=== PATIENT | female | born 1990 | race Caucasian/White ===

== ENCOUNTER 2019-04-15 16:34 | Emergency (ER) | payer OTHER ==
[2019-04-15 16:47] VITALS: BMI 28.7
--- NOTE | 2019-04-15 17:13 | PDOC ---
Attending Attestation - Resident Resident Name: Eliseo Luna - ED Attending Attestation I have performed the following: I have examined & evaluated the patient, The case was reviewed & discussed with the resident, I agree w/resident's findings & plan, Exceptions are as noted - HPI HPI: 04/15/19 17:12 28-year-old female who states she is about 14 weeks and has vaginal bleeding - Physicial Exam PE: 04/15/19 18:[address] Eliseo aGrcía's physical exam. - Medical Decision Making 04/15/19 18:37 This patient is followed by [employer] and Dr. 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 Chow who wanted her given rhogam this evening
[2019-04-15 17:53] LABS: PH,URINE 5.5 (5.0-8.0); URINE APPEARANCE CLEAR; URINE BILIRUBIN NEGATIVE (NEGATIVE); URINE COLOR YELLOW; URINE GLUCOSE (UA) NEGATIVE (NEGATIVE); URINE KETONE NEGATIVE (NEGATIVE); URINE LEUK ESTERASE NEGATIVE (NEGATIVE); URINE NITRITE NEGATIVE (NEGATIVE); URINE PROTEIN NEGATIVE (NEGATIVE); URINE UROBILINOGEN 0.2 mg/dL (0.2-1.0)
[2019-04-15 17:59] LABS: BASO % 0.4 % (0-2.0); EOS % 1.4 % (0-4.5); HEMATOCRIT 35.3 % (32.4-45.2); HEMOGLOBIN 12.1 GM/dL (10.7-15.3); LYMPH % 19.1 % (8-40); MCH 27.3 pg (25.7-33.7); MCHC 34.2 g/dl (32.0-36.0); MEAN CELL VOLUME 79.6 fl (80-96); NEUT % 72.1 % (42.8-82.8); PLATELET COUNT 229 K/MM3 (134-434); RBC 4.44 M/mm3 (3.60-5.2); RDW 14.4 % (11.6-15.6)
[2019-04-15 18:14] LABS: INR 0.89 (0.83-1.09); PROTHROMBIN TIME (PATIENT) 10.5 SEC (9.7-13.0)
[2019-04-15 18:17] LABS: ACTIVATED PTT 30.3 SECONDS (25.2-36.5)
[2019-04-15 18:26] LABS: ALBUMIN 3.2 g/dl (3.4-5.0); ALK PHOS 64 U/L (45-117); ANION GAP 4 MMOL/L (8-16); BILIRUBIN,TOTAL < 0.1 mg/dL (0.2-1); BLOOD UREA NITROGEN 8.4 mg/dL (7-18); CALCIUM 8.8 mg/dL (8.5-10.1); CHLORIDE 107 mmol/L (98-107); CO2 25 mmol/L (21-32); CREATININE 0.4 mg/dL (0.55-1.3); GLUCOSE,RANDOM 93 mg/dL (74-106); POTASSIUM 4.1 mmol/L (3.5-5.1); SGOT/AST 12 U/L (15-37); SGPT/ALT 18 U/L (13-61); SODIUM 136 mmol/L (136-145); TOT PROT 6.7 g/dl (6.4-8.2)
--- NOTE | 2019-04-15 18:27 | PDOC ---
History of Present Illness - General Chief Complaint: Vaginal Bleeding Stated Complaint: 14WEEKS SPOTTING Time Seen by Provider: 04/15/19 17:05 History Source: Patient Exam Limitations: No Limitations - History of Present Illness Initial Comments: 04/15/19 18:27 28 yo female, with 1 noted miscarriage at 12 weeks for unknown reason presents to the ED for 3 days of vaginal spotting with associated suprapubic abdominal pain. Pt CHAIR, Dr. Man made pt aware that she is Rh- and if she notes bleeding to head to the ER for Rho daniel; pt recently given rho daniel after a noted bleeding with a hematoma noted near her cervix. Last appointment [address] Man, no US done but normal milestones met. Pt admits to bright red blood spotting, no heavy bleeding, denies weakness, lighteadedness, F/C/N/V, severe abdominal pain, CP, SOB, recent trauma, hx of bleeding, liver disease. Past History - Past Medical History Allergies/Adverse Reactions: Allergies Allergy/AdvReac Type Severity Reaction Status Date / Time No Known Allergies Allergy Verified 04/15/19 16:43 CVA: No COPD: No - Psycho Social/Smoking Cessation Hx Smoking History: Never smoked Hx Alcohol Use: No Drug/Substance Use Hx: No Review of Systems - Review of Systems Constitutional: No: Chills, Fever Respiratory: No: Shortness of Breath Cardiac (ROS): No: Chest Pain, Edema ABD/GI: Yes: Abdominal cramping, Other (suprapubic pain). No: Constipated, Diarrhea, Nausea, Vomiting : No: Burning, Dysuria, Frequency, Flank Pain Musculoskeletal: No: Back Pain Neurological: No: Headache, Numbness, Paresthesia, Weakness, Unsteady Gait, Ataxia, Dizziness *Physical Exam - Vital Signs Last Vital Signs Temp Pulse Resp BP Pulse Ox 98 F 95 H 20 136/81 99 04/15/19 16:43 04/15/19 16:43 04/15/19 16:43 04/15/19 16:43 04/15/19 16:43 - Physical Exam General Appearance: Yes: Nourished, Appropriately Dressed. No: Apparent Distress HEENT: negative: EOMI Neck: positive: Supple. negative: Carotid bruit Respiratory/Chest: positive: Lungs Clear, Normal Breath Sounds. negative: Respiratory Distress, Crackles, Rales, Rhonchi, Stridor, Wheezing Cardiovascular: positive: Regular Rhythm, Regular Rate, S1, S2. negative: Edema , JVD, Murmur Vascular Pulses: Dorsalis-Pedis (R): 4+, Doralis-Pedis (L): 4+ Female Pelvic Exam: positive: other (deferred as per CHAIR) Gastrointestinal/Abdominal: positive: Flat, Soft. negative: Pulsatile Mass, Distended, Guarding, Rebound, Tenderness Musculoskeletal: negative: CVA Tenderness Extremity: positive: Normal Capillary Refill, Normal Inspection, Normal Range of Motion Integumentary: positive: Normal Color, Dry, Warm Neurologic: positive: Fully Oriented, Alert, Normal Mood/Affect ED Treatment Course - LABORATORY CBC & Chemistry Diagram: 04/15/19 17:50 04/15/19 17:50 - ADDITIONAL ORDERS Additional order review: Laboratory Results 04/15/19 17:40 Urine Color Yellow Urine Appearance Clear Urine pH 5.5 Ur Specific [place] 1.007 L Urine Protein Negative Urine Glucose (UA) Negative Urine Ketones Negative Urine Blood Negative Urine Nitrite Negative Urine Bilirubin Negative Urine Urobilinogen 0.2 Ur Leukocyte Esterase Negative Medical Decision Making - Medical Decision Making 04/15/19 19:24 28 yo female, with 1 noted miscarriage at 12 weeks for unknown reason presents to the ED for 3 days of vaginal spotting with associated suprapubic abdominal pain. Pt CHAIR, Dr. Man made pt aware that she is Rh- and if she notes bleeding to head to the ER for Rho daniel; pt recently given rho daniel after a noted bleeding with a hematoma noted near her cervix. Last appointment [address] Man, no US done but normal milestones met. Pt admits to bright red blood spotting, no heavy bleeding, denies weakness, lightheadedness, F/C/N/V, severe abdominal pain, CP, SOB, recent trauma, hx of bleeding, liver disease. 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 Chow, agrees no current intra uterine exam should be done at this time, recommends Rhogam and f/u with Dr. Man within the next 3 days. Also recommends no work, no sex until OB f/u Labs neg for anemia, no WBC elevation, normal electrolytes Rh +, Dr. Chow states pt likely positive since she recently received rhogam however, still recommends rhogam on todays visit 04/15/19 21:26 Pt received rhogam, she is safe for DC home. Understands and agrees with plan Discharge - Discharge Information Problems reviewed: Yes Clinical Impression/Diagnosis: Vaginal bleeding before 22 weeks gestation Condition: Stable Disposition: HOME - Admission No - Follow up/Referral Referrals: Gosia Man MD [Staff Physician] - - Patient Discharge Instructions Patient Printed Discharge Instructions: DI for Vaginal Bleeding During Additional Instructions: Please call your CHAIR doctor as soon as possible for the earliest appointment , she is awaiting your call. Do not go to work, refrain from significant activity including sex. Return to the ER for new or concerning symptoms including but not limited to: vaginal bleeding, weakness, fevers. Thank you - Post Discharge Activity
[2019-04-15] MEDS ORDERED: RHO(D) IMMUNE GLOBULIN 1,500 UNIT DISP.SYRIN IM ONE (19:38)
[2019-04-15] MEDS ORDERED: ACETAMINOPHEN 1000 MG/100 ML VIAL (NON FORMULARY) IVPB ONE (20:21)
[2019-04-15] MEDS ORDERED: ACETAMINOPHEN INJECTION 100 ML IVPB ONE (20:47)
[2019-04-15 21:34] VITALS: BP 128/78; PULSE 86; TEMP 98.1
== END 2019-04-15 21:34 | disposition home or self-care (01) ==
LOC: JER 16:34
PROC: 3E033NZ Introduction of Analgesics, Hypnotics, Sedatives into Peripheral Vein, Percutaneous Approach (ICD-10-PCS; principal; 2019-04-15)
PROC: 3E0234Z Introduction of Serum, Toxoid and Vaccine into Muscle, Percutaneous Approach (ICD-10-PCS; 2019-04-15)
DX: O26.892 Other specified pregnancy related conditions, second trimester (principal); O20.8 Other hemorrhage in early pregnancy; O36.0920 Maternal care for other rhesus isoimmunization, second trimester, not applicable or unspecified; Z3A.14 14 weeks gestation of pregnancy
CPT/HCPCS: 36415; 76801-TC; 80053; 81003; 84702; 85025; 85610; 85730; 86850; 86870; 86900; 86901; 86902; 86999; 99284-25; J0131; J1561

== ENCOUNTER 2023-07-20 09:42 | Inpatient (IN) | payer BC ==
[2023-07-20 10:32] VITALS: BMI 35.8
[2023-07-20] MEDS ORDERED: OXYTOCIN 20 UNITS in 0.9% NS 20 UNIT/1,000 ML INFUS.BAG IV ONE (11:01)
[2023-07-20 11:12] LABS: BASO % 0.4 % (0-2.0); EOS % 0.3 % (0-4.5); HEMATOCRIT 34.7 % (32.4-45.2); HEMOGLOBIN 12.2 GM/dL (10.7-15.3); LYMPH % 11.2 % (8-40); MCH 26.7 pg (25.7-33.7); MCHC 35.2 g/dl (32.0-36.0); MEAN CELL VOLUME 75.9 fl (80-96); MONO % 4.3 % (3.8-10.2); NEUT % 83.8 % (42.8-82.8); PLATELET COUNT 168 10^3/uL (134-434); RBC 4.57 M/mm3 (3.60-5.2); RDW 14.9 % (11.6-15.6); WHITE BLOOD COUNT 15.7 K/mm3 (4.0-10.0)
[2023-07-20] MEDS ORDERED: LIDOCAINE HCL 1% PRESERVATIVE FREE - 30ML VIAL ONE (11:39)
[2023-07-20 11:42] LABS: POTASSIUM 3.6 mmol/L (3.5-5.1)
[2023-07-20 11:43] LABS: CALCIUM 8.7 mg/dL (8.5-10.1)
[2023-07-20 11:44] LABS: BLOOD UREA NITROGEN 8.2 mg/dL (7-18)
[2023-07-20 11:47] LABS: CREATININE 0.5 mg/dL (0.55-1.3)
[2023-07-20] MEDS ORDERED: BENZOCAINE 28 GM HEMORRHOIDAL OINTMENT TP PRN (12:01)
[2023-07-20] MEDS ORDERED: WITCH HAZEL 50% (TUCKS) 40 PAD/JAR PAD TP PRN (12:01)
[2023-07-20] MEDS ORDERED: METHYLERGONOVINE MALEATE 0.2 MG/1 ML AMP IM PRN (12:01)
[2023-07-20] MEDS ORDERED: BENZOCAINE 20% 57 GM BOTTLE TP PRN (12:01)
[2023-07-20] MEDS ORDERED: oxyCODONE HCL 5 MG TABLET PO PRN (12:01)
[2023-07-20 12:15] LABS: INR 0.98 (0.83-1.09); PROTHROMBIN TIME (PATIENT) 11.4 SEC (9.7-13.0)
[2023-07-20 12:18] LABS: ACTIVATED PTT 23.3 SECONDS (25.2-36.5)
[2023-07-20 13:29] LABS: CORD BASE EXCESS -5.1 mmol/L (0-2); CORD HCO3 22.6 mmHg (20-29); CORD PCO2 51.8 mmHg (30-78); CORD pH 7.257 (7.14-7.44)
[2023-07-20 13:32] LABS: CORD BASE EXCESS -6.7 mmol/L (0-2); CORD HCO3 21.6 mmHg (20-29); CORD PCO2 53.1 mmHg (30-78); CORD pH 7.227 (7.14-7.44)
[2023-07-20] MEDS: IBUPROFEN 600 MG TABLET (FP) PO PRN (17:02)
[2023-07-20] MEDS: OXYTOCIN 20 UNITS in 0.9% NS 20 UNIT/1,000 ML INFUS.BAG IV SCH (17:05)
[2023-07-20] MEDS: ACETAMINOPHEN 325 MG TABLET (FP) PO PRN (20:46)
[2023-07-21 09:06] LABS: BASO % 0.3 % (0-2.0); EOS % 0.7 % (0-4.5); HEMATOCRIT 32.1 % (32.4-45.2); HEMOGLOBIN 11.3 GM/dL (10.7-15.3); LYMPH % 20.5 % (8-40); MCHC 35.1 g/dl (32.0-36.0); MEAN PLT VOLUME 9.2 fl (7.5-11.1); MONO % 5.7 % (3.8-10.2); NEUT % 72.8 % (42.8-82.8); PLATELET COUNT 180 10^3/uL (134-434); RBC 4.18 M/mm3 (3.60-5.2); RDW 14.8 % (11.6-15.6); WHITE BLOOD COUNT 13.1 K/mm3 (4.0-10.0)
[2023-07-21] MEDS: PRENATAL VITAMINS W/ FOLIC ACID TABLET (FP) PO SCH (09:06)
[2023-07-21 10:28] VITALS: RESP 18
[2023-07-21] MEDS ORDERED: SENNOSIDES/DOCUSATE COMBO (SENNA PLUS) TABLET (UD) PO PRN (22:00)
[2023-07-22 10:31] VITALS: BP 114/79; PULSE 72; TEMP 98.3
[2023-07-22] MEDS: BISACODYL 10 MG SUPP.RECT RC PRN (12:45)
== END 2023-07-22 14:40 | disposition home or self-care (01) | DRG 807 ==
LOC: JDEL 09:42 → JLDR 10:00 → J3W 14:50
PROVIDERS: ADMIT Obstetrics & Gynecology; ATTEND Obstetrics & Gynecology
PROC: 10E0XZZ Delivery of Products of Conception, External Approach (ICD-10-PCS; principal; 2023-07-20)
PROC: 0KQM0ZZ Repair Perineum Muscle, Open Approach (ICD-10-PCS; 2023-07-20)
PROC: 0W8NXZZ Division of Female Perineum, External Approach (ICD-10-PCS; 2023-07-20)
DX: O70.1 Second degree perineal laceration during delivery (principal); Z3A.40 40 weeks gestation of pregnancy; Z37.0 Single live birth
CPT/HCPCS: 36415; 36600; 80048; 82803; 85025; 85461; 85610; 85730; 86780; 86850; 86900; 86901